=== PATIENT | female | born 1930 | race Caucasian/White ===

== ENCOUNTER 2018-10-27 18:30 | Inpatient (IN) | payer MEDICARE ==
--- NOTE | 2018-10-27 19:52 | ED PDOC ---
HPI: Trauma/Fall - HPI Time Seen by Provider: 10/27/18 18:42 Chief Complaint (Nursing): Trauma Chief Complaint (Provider): Trauma History Per: Patient, Family (son) History/Exam Limitations: no limitations Onset/Duration Of Symptoms: Intermittent Episodes (x1 week) Injury Occurred (Timing): Just Before Arrival Additional Complaint(s): 88 year old female with pmHx of thyroid disease, arrives to ED with son for an evaluation of generalized weakness for 1 week. As per son, he found the patient had fallen onto the living room floor around 20:00 last night and was unable to get up. It is unknown what time she had fell but she was placed onto her bed by her family. Prior to arrival, patient had called son and stated that she had fell again, thus, prompting ED visit. At present, she reports experiencing decreased appetite and diarrhea. She denies chest pain, shortness of breath, focal weakness, blurry vision, headache, or difficulty with speech. Of note, patient is placed on diuretic for chronic leg edema. PCP: Dr. Elliott Reis Past Medical History Reviewed: Historical Data, Nursing Documentation, Vital Signs Vital Signs: Last Vital Signs Temp 98.8 F 10/27/18 18:34 Pulse 92 H 10/27/18 18:34 Resp 18 10/27/18 18:32 BP 182/75 H 10/27/18 18:34 Pulse Ox 96 10/27/18 18:34 - Medical History PMH: Alzheimer's Disease, CHF, Dementia, HTN, Hypothyroidism Denies: Chronic Kidney Disease - Surgical History Surgical History: No Surg Hx - Family History Family History: States: No Known Family Hx - Social History Current smoker - smoking cessation education provided: No Alcohol: None Drugs: Denies - Home Medications Home Medications: Ambulatory Orders Medication Instructions Recorded RX: Anastrozole [Arimidex] 1 mg PO DAILY 09/27/16 RX: Doxazosin [Cardura] 2 mg PO DAILY 09/27/16 RX: Aspirin [Aspirin Chewable] 81 mg PO DAILY chew 09/28/16 RX: Donepezil [Aricept] 5 mg PO HS tab 09/28/16 RX: Furosemide [Lasix] 20 mg PO DAILY tab 09/28/16 RX: Levothyroxine [Synthroid] 100 mcg PO DAILY@0630 tab 09/28/16 - Allergies Allergies/Adverse Reactions: Allergies Allergy/AdvReac Type Severity Reaction Status Date / Time No Known Allergies Allergy Verified 09/27/16 12:29 Review of Systems ROS Statement: Except As Marked, All Systems Reviewed And Found Negative (and as per HPI) Constitutional: Positive for: Weakness Eyes: Negative for: Vision Change (blurry) Cardiovascular: Negative for: Chest Pain Respiratory: Negative for: Shortness of Breath Gastrointestinal: Positive for: Diarrhea, Rectal Pain, Other (decreased appetite) Neurological: Negative for: Weakness (focal), Change in Speech, Headache Physical Exam - Reviewed Nursing Documentation Reviewed: Yes Vital Signs Reviewed: Yes - Physical Exam Appears: Positive for: No Acute Distress (but tired appearing) Head Exam: Positive for: ATRAUMATIC, NORMOCEPHALIC Skin: Positive for: Warm, Dry Eye Exam: Positive for: EOMI, PERRL ENT: Positive for: Other (tacky mucous membranes) Neck: Positive for: Painless ROM, Supple Cardiovascular/Chest: Positive for: Regular Rate, Rhythm. Negative for: Murmur Respiratory: Positive for: Normal Breath Sounds. Negative for: Respiratory Distress Gastrointestinal/Abdominal: Positive for: Soft. Negative for: Tenderness Back: Positive for: Normal Inspection. Negative for: Muscle Spasm Extremity: Positive for: Pedal Edema (doughy bilaterally) Lymphatic: Negative for: Adenopathy Neurologic/Psych: Positive for: Alert, Oriented (x2). Negative for: Motor/S ensory Deficits - Laboratory Results Result Diagrams: 10/27/18 19:45 10/27/18 19:45 - ECG O2 Sat by Pulse Oximetry: 96 (RA) Pulse Ox Interpretation: Normal Medical Decision Making Medical Decision Making: Initial Impression: General weakness Differential diagnosis includes but not limited to: dehydration, anemia, UTI, viral syndrome, sepsis, electrolyte abnormality, coronary syndrome. Initial Plan: * Labs * CT head * EKG * Blood culture * Urine culture * Accucheck * Influenza AB Time: 1938 --CT head FINDINGS: BRAIN No acute intraparenchymal hemorrhage. No mass lesion. No CT evidence for acute territorial infarct. No midline shift or extra-axial collections. There is periventricular white matter ischemic changes. VENTRICLES: No hydrocephalus. ORBITS: The orbits are unremarkable. SINUSES AND MASTOIDS: The paranasal sinuses and mastoid air cells are clear. BONES: No fracture. SOFT TISSUES: Unremarkable. IMPRESSION: No acute intracranial abnormality. Periventricular white matter ischemic changes. Clinical correlation advised. Labs demonstrate leukocytosis CXR with RLL infiltrate UA with UTI. DAVID Reis PMD for hospitalization DW pt and family findings and plan of care. Scribe Attestation: Documented by Kenna Alonso, acting as a scribe for Nellie Dee MD. Provider Scribe Attestation: All medical record entries made by the Scribe were at my direction and personally dictated by me. I have reviewed the chart and agree that the record accurately reflects my personal performance of the history, physical exam, medical decision making, and the department course for this patient. I have also personally directed, reviewed, and agree with the discharge instructions and disposition. Disposition - Clinical Impression Clinical Impression: Pneumonia, UTI (urinary tract infection), Weakness Counseled Patient/Family Regarding: Studies Performed, Diagnosis - Disposition Disposition Time: 22:00 Condition: FAIR - Pt Status Changed To: Hospital Disposition Of: Inpatient - Admit Certification Admit to Inpatient:: After my assessment, the patient will require hospitalization for at least two midnights. This is because of the severity of symptoms shown, intensity of services needed, and/or the medical risk in this patient being treated as an outpatient. - POA Present On Arrival: Falls Or Trauma
[2018-10-27 20:02] LABS: VENOUS BLOOD GAS PCO2 39 mmHg (40-60); VENOUS BLOOD GAS PO2 57 mm/Hg (30-55); VENOUS BLOOD PH 7.45 (7.32-7.43)
[2018-10-27 20:08] LABS: BASO # 0.1 K/uL (0.0-0.2); BASO % 0.5 % (0.0-2.0); HEMOGLOBIN 13.6 g/dL (12.0-16.0); LYMPH # 0.7 K/uL (1.0-4.3); LYMPH % 4.8 % (20.0-40.0); MEAN CELL VOLUME 93.2 fl (81.0-99.0); MEAN CORPUSCULAR HEMOGLOBIN 30.8 pg (27.0-31.0); MEAN CORPUSCULAR HGB CONC 33.1 g/dL (33.0-37.0); MEAN PLATELET VOLUME 9.5 fl (7.2-11.7); MONO # 1.7 K/uL (0.0-0.8); MONO % 12.6 % (0.0-10.0); NEUT # 11.2 K/uL (1.8-7.0); NEUT % 82.1 % (50.0-75.0); NRBC % 0.3 % (0.0-0.0); PLATELET COUNT 164 K/uL (130-400); RBC 4.41 Mil/uL (3.80-5.20); RED CELL DISTRIBUTION WIDTH 14.4 % (11.5-14.5); WHITE BLOOD COUNT 13.6 K/uL (4.8-10.8)
[2018-10-27 20:13] LABS: ALB/GLOB RATIO 1.1 (1.0-2.1); ALBUMIN 3.8 g/dL (3.5-5.0); ALT/SGPT 48 U/L (9-52); AST/SGOT 59 U/L (14-36); BLOOD UREA NITROGEN 25 mg/dl (7-17); CALCIUM 9.1 mg/dL (8.4-10.2); GFR NON-AFRICAN AMERICAN 52
[2018-10-27 20:20] LABS: INR 1.2; PROTHROMBIN TIME 13.8 Seconds (9.8-13.1)
[2018-10-27 20:22] LABS: PARTIAL THROMBOPLASTIN TIME 26.1 Seconds (25.6-37.1)
[2018-10-27 20:24] LABS: B-TYPE NATRIURETIC PEPTIDE 965 pg/ml (0-900)
[2018-10-27] MEDS ORDERED: Azithromycin 500 MG in Sodium Chloride 0.9% 250 ML IVPB ONE (20:30)
[2018-10-27 20:31] LABS: LYMPHOCYTE 3 % (20-50); MONOCYTE 11 % (0-10); NEUTROPHIL 86 % (42-75); PLATELET ESTIMATE NORMAL (NORMAL); TOTAL CELLS COUNTED 100
[2018-10-27 20:32] LABS: ANISOCYTOSIS SLIGHT; OVALOCYTES SLIGHT; POIKILOCYTOSIS SLIGHT
[2018-10-27] MEDS ORDERED: cefTRIAXone (Rocephin) 1 gm Inj ONE (20:33)
[2018-10-27 21:39] LABS: SQUAMOUS EPITHIAL 2 /hpf (0-5); URINE BILIRUBIN NEGATIVE (NEGATIVE); URINE BLOOD MODERATE (NEGATIVE); URINE CLARITY CLOUDY (Clear); URINE COLOR AMBER (YELLOW); URINE GLUCOSE (UA) NEG (NEGATIVE); URINE LEUKOCYTE ESTERASE SMALL Leu/uL (Negative); URINE PROTEIN NEGATIVE (NEGATIVE); WBC CLUMPS FEW /hpf
[2018-10-27 21:45] LABS: URINE BACTERIA MANY (<OCC)
[2018-10-27] MEDS ORDERED: Azithromycin 500 MG IV IVPB ONE (23:27)
--- NOTE | 2018-10-28 08:49 | RAD ---
Date of service: 10/27/2018 HISTORY: Altered mental status COMPARISON: 09/27/2016. FINDINGS: LUNGS: The lungs are well inflated. There is patchy airspace disease in the right middle and lower lobes. PLEURA: No pleural effusions or pneumothorax. CARDIOVASCULAR: The heart is normal in size. There are aortic atherosclerotic calcifications present. OSSEOUS STRUCTURES: Within normal limits for the patient's age. VISUALIZED UPPER ABDOMEN: Normal. OTHER FINDINGS: None. IMPRESSION: Patchy airspace disease in the right middle and lower lobes could represent subsegmental atelectasis however superimposed pneumonia cannot be excluded. Follow-up is advised.
[2018-10-28] MEDS ORDERED: Azithromycin 500 MG in Sodium Chloride 0.9% 250 ML IVPB SCH (09:00)
[2018-10-28] MEDS: Levothyroxine 100 MCG TAB PO SCH (09:26)
--- NOTE | 2018-10-28 09:43 | CT ---
Date of service: 10/27/2018 PROCEDURE: CT HEAD WITHOUT CONTRAST. HISTORY: fall COMPARISON: None available. TECHNIQUE: Axial computed tomography images were obtained through the head/brain without intravenous contrast. Radiation dose: Total exam DLP = 1181.73 mGy-cm. This CT exam was performed using one or more of the following dose reduction techniques: Automated exposure control, adjustment of the mA and/or kV according to patient size, and/or use of iterative reconstruction technique. FINDINGS: HEMORRHAGE: No intracranial hemorrhage. BRAIN: There are moderate chronic microangiopathic changes. There is an old infarction in the left very frontal white matter and old lacunar infarction in the right basal ganglia. There is no mass, mass effect or abnormal extra-axial fluid collection. There is no territorial infarction. The midline sagittal structures are normal.There are coarse atherosclerotic calcifications in the cavernous carotid arteries. VENTRICLES: There is mild age-related global parenchymal volume loss and proportionate enlargement of the ventricles and cortical sulci. CALVARIUM: There is no calvarial fracture or extracranial soft tissue swelling. PARANASAL SINUSES: Predominantly clear. MASTOID AIR CELLS: Predominantly clear. OTHER FINDINGS: None. IMPRESSION: No acute intracranial abnormality. Moderate chronic microangiopathic changes and mild age-related global parenchymal volume loss. 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 A preliminary report was provided by [employer].
--- NOTE | 2018-10-28 16:39 | CARD ---
APPROVED REPORT Date of service: 10/27/2018 EKG Measurement Heart [id number] MT [id number] [id number] <Conclusion> Normal sinus rhythm Normal ECG
[2018-10-28] MEDS: Lactulose 10 gm/15 ml Syrup PO SCH (20:59)
--- NOTE | 2018-10-28 23:08 | CP.PCM.PCO ---
Physician Communication Note - Physician Communication Note Physician Communication Note: Blood cx: G+ cocci; Started vancomycin 1 gm IVPB Q12
[2018-10-29] MEDS: Lactulose 10 gm/15 ml Syrup PO SCH ×6 (01:35→20:28)
--- NOTE | 2018-10-29 05:13 | HP ---
HISTORY OF PRESENT ILLNESS: This is an 88-year-old female who is known to me with history of hypothyroidism, osteoarthritis, and bilateral venous insufficiency. The patient was found in the floor by her family. The patient was brought to emergency room and evaluated where she was found to have patchy airspace disease in the right middle and lower lobe, could present subsegmental atelectasis; however, superimposed pneumonia cannot be excluded. The patient was started on IV antibiotics and IV hydration and admitted for further management. The patient also had influenza type A and B done in the emergency room that were negative. REVIEW OF SYSTEMS: Other review of systems is negative. ALLERGIES: NO KNOWN ALLERGY. MEDICATIONS: Reviewed as per MAR and ordered. SOCIAL HISTORY: No history of smoking, EtOH or substance abuse. FAMILY HISTORY: Not contributory. PAST MEDICAL HISTORY: As above. PHYSICAL EXAMINATION: GENERAL: The patient is in bed, not in any cardiopulmonary distress. VITAL SIGNS: Blood pressure 123/66, temperature 98.1, respiratory rate 20 and pulse of 90. HEENT: Pupils equal, reactive to light. Normal-appearing mucosa of the conjunctivae, oropharynx and nasal membrane mucosa. NECK: Supple. No JVD. No carotid bruit. No lymph node. No thyromegaly. CHEST AND LUNGS: Bilateral symmetrical expansion. Good air exchange. Few basilar rales. CARDIOVASCULAR SYSTEM: PMI not localized. S1, S2. No additional sounds. ABDOMEN: Normoactive bowel sounds. No tenderness. No organomegaly. No masses. EXTREMITIES: There is bilateral edema. The patient moves all extremities equally. ASSESSMENT: 1. Right lower and middle lobe pneumonia. 2. Dehydration. 3. History of hypothyroidism. PLAN: Continue current IV antibiotics and resume the patient's home medications and physical therapy. Corby MD Chato
[2018-10-29] MEDS: Levothyroxine 100 MCG TAB PO SCH (05:38)
[2018-10-29 10:33] LABS: MEAN CELL VOLUME 95.5 fl (81.0-99.0); MEAN CORPUSCULAR HEMOGLOBIN 31.9 pg (27.0-31.0); MEAN CORPUSCULAR HGB CONC 33.4 g/dL (33.0-37.0); RBC 4.08 Mil/uL (3.80-5.20); RED CELL DISTRIBUTION WIDTH 14.7 % (11.5-14.5); WHITE BLOOD COUNT 6.7 K/uL (4.8-10.8)
[2018-10-29 10:45] LABS: ALBUMIN 3.4 g/dL (3.5-5.0); ALT/SGPT 76 U/L (9-52); AST/SGOT 89 U/L (14-36); BLOOD UREA NITROGEN 25 mg/dl (7-17); CALCIUM 8.7 mg/dL (8.4-10.2); GFR NON-AFRICAN AMERICAN > 60
[2018-10-29] MEDS: levoFLOXacin 500 mg in D5W 500 MG/100 ML BAG IVPB SCH (14:30)
[2018-10-29] MEDS ORDERED: Potassium Chloride 20 mEq ER Tab PO ONE (18:53)
--- NOTE | 2018-10-29 21:01 | CARD ---
APPROVED REPORT Date of service: 10/29/2018 EXAM: Two-dimensional and M-mode echocardiogram with Doppler and color Doppler. Other Information Quality : GoodRhythm : NSR INDICATION Infection: 2D DIMENSIONS IVSd1.52 (0.7-1.1cm)LVDd4.41 (3.9-5.9cm) LVOT Diameter2.11 (1.8-2.4cm)PWd1.45 (0.7-1.1cm) IVSs1.51 (0.8-1.2cm)LVDs3.30 (2.5-4.0cm) FS (%) 25.1 %PWs1.66 (0.8-1.2cm) M-Mode DIMENSIONS Left Atrium (MM)4.24 (2.5-4.0cm)IVSd1.03 (0.7-1.1cm) Aortic Root3.24 (2.2-3.7cm)LVDd5.53 (4.0-5.6cm) Aortic Cusp Exc.1.62 (1.5-2.0cm)PWd1.09 (0.7-1.1cm) IVSs1.47 cmFS (%) 31 % LVDs3.82 (2.0-3.8cm)PWs0.97 cm Aortic Valve AoV Peak Yjedmeak268.3cm/sAoV VTI28.6cmAO Peak GR.8mmHg LVOT Peak Bvpfhffm28.2cm/sLVOT VTI17.10cmAO Mean GR.5mmHg BRADFORD (VMAX)1.07qj2QYO (VTI)1.06cm2 Mitral Valve MV E Jwrwmxbf46.8cm/sMV DECEL [id number] A Eedbweqy94.4cm/s MV DBZ76qdM/A ratio0.6MVA (PHT)2.60cm2 TDI Lateral E' Peak V6.60cm/sMedial E' Peak V4.64cm/sE/Lateral E'7.8 E/Medial E'11.2 LEFT VENTRICLE The left ventricle is normal size. There is normal left ventricular wall thickness. The left ventricular systolic function is normal. The estimated ejection fraction is 55-60% No regional wall motion abnormalities noted.. Transmitral Doppler flow pattern is Grade I-abnormal relaxation pattern. No left ventricle thrombus noted on this study. There is no ventricular septal defect visualized. There is no left ventricular aneurysm. There is no mass noted in the left ventricle. RIGHT VENTRICLE The right ventricle is normal size. There is normal right ventricular wall thickness. The right ventricular systolic function is normal. ATRIA The left atrium is mildly dilated. The right atrium size is normal. The interatrial septum is intact with no evidence for an atrial septal defect. AORTIC VALVE The aortic valve is normal in structure. No aortic regurgitation is present. There is no aortic valvular stenosis. There is no aortic valvular vegetation. MITRAL VALVE The mitral valve is normal in structure. There is no evidence of mitral valve prolapse. There is no mitral valve stenosis. There is mild mitral valve regurgitation noted. TRICUSPID VALVE The tricuspid valve is normal in structure. There is no tricuspid valve regurgitation noted. There is no tricuspid valve prolapse or vegetation. There is no tricuspid valve stenosis. PULMONIC VALVE The pulmonary valve is normal in structure. There is no pulmonic valvular regurgitation. There is no pulmonic valvular stenosis. GREAT VESSELS The aortic root is normal in size. The ascending aorta is normal in size. The pulmonary artery is normal. The IVC is normal in size and collapses >50% with inspiration. PERICARDIAL EFFUSION There is no pericardial effusion. There is no pleural effusion. <Conclusion> Technically difficult study The estimated ejection fraction is 55-60% Transmitral Doppler flow pattern is Grade I-abnormal relaxation pattern. The left atrium is mildly dilated. There is mild mitral valve regurgitation noted. There is no tricuspid valve regurgitation noted. No vegetations found on this study. Correlate clinically.
[2018-10-30] MEDS: Lactulose 10 gm/15 ml Syrup PO SCH ×4 (01:02→13:04)
[2018-10-30] MEDS: Levothyroxine 100 MCG TAB PO SCH (05:39)
[2018-10-30 08:56] LABS: HEMOGLOBIN 13.6 g/dL (12.0-16.0); MEAN CELL VOLUME 97.1 fl (81.0-99.0); MEAN CORPUSCULAR HEMOGLOBIN 31.8 pg (27.0-31.0); MEAN CORPUSCULAR HGB CONC 32.7 g/dL (33.0-37.0); RBC 4.27 Mil/uL (3.80-5.20); RED CELL DISTRIBUTION WIDTH 14.6 % (11.5-14.5); WHITE BLOOD COUNT 6.2 K/uL (4.8-10.8)
[2018-10-30 09:10] LABS: BLOOD UREA NITROGEN 25 mg/dl (7-17); CALCIUM 9.1 mg/dL (8.4-10.2); GFR NON-AFRICAN AMERICAN > 60
[2018-10-30] MEDS: levoFLOXacin 500 mg in D5W 500 MG/100 ML BAG IVPB SCH (09:10)
--- NOTE | 2018-10-30 10:42 | PN ---
DATE: 10/29/2018 SUBJECTIVE: She was not in any cardiopulmonary distress at the time of this examination. PHYSICAL EXAMINATION: VITAL SIGNS: The patient's blood pressure was 158/70, temperature 96.8, respiratory rate 20 and pulse 69. HEENT: Pupils equal, reactive to light. Normal-appearing mucosa of the conjunctivae, oropharynx and nasal membrane mucosa. NECK: Supple. No JVD. No carotid bruit. No lymph node. No thyromegaly. CHEST AND LUNGS: Bilateral symmetrical expansion. Good air exchange. No rales, no rhonchi. CARDIOVASCULAR: PMI not localized. S1, S2. No additional sounds. ABDOMEN: Normoactive bowel sounds. No tenderness. No organomegaly. No masses. EXTREMITIES: No cyanosis, no clubbing, no edema. CENTRAL NERVOUS SYSTEM: Alert, awake, oriented x2 and moves all extremities equally. LABORATORY DATA: Blood culture grew coagulase-negative Staphylococcus and urine culture grew E. coli. ASSESSMENT: Pneumonia, urinary tract infection, history of hypothyroidism, osteoarthritis. PLAN: Continue current IV antibiotics, both vancomycin and Levaquin. Follow with infectious disease consult and follow their recommendations. Physical therapy evaluation for discharge to transitional care unit. Elliott Reis MD
--- NOTE | 2018-10-30 12:25 | CP.PCM.PCO ---
Physician Communication Note - Physician Communication Note Physician Communication Note: Pt has uti/bateremia, needs IV abx for [address] Reis will follow
[2018-10-30 15:43] VITALS: BP 139/73; TEMP 97.5
[2018-10-30 16:17] VITALS: PULSE 80; RESP 230; O2SAT 95
--- NOTE | 2018-10-31 22:28 | PQF ---
PROVIDER RESPONSE TEXT: Likely contamination REVIEWER QUERY TEXT: Clarification of Clinical Diagnostic Findings Please clarify if there is an associated diagnosis tor not to go along with the 1 blood culture growi ng Coagulase Neg Staphylococcus. Please clarify documentation or clinical relevance for the clinical / diagnostic findings or whether those are insignificant or unable to be further specified. The patient's Clinical Indicators include: Presented s/p Falls to the ER. Diagnoses include: Right lower and middle lobe pneumonia Blood CS x 1 Coagulase Neg Staph. CXR: Patchy airspace disease in the right middle and lower lobes could represent subsegmental atelect asis however superimposed pneumonia cannot be excluded Rx: IVAB Query created by: Any Orellana on 10/30/2018 12:48 PM Electronically signed by: Elliott Reis MD 10/31/2018 10:25 PM
--- NOTE | 2018-10-31 22:28 | PQF ---
PROVIDER RESPONSE TEXT: Chronic diastolic HF REVIEWER QUERY TEXT: Heart Failure Acuity and Type PMH of CHF is documented in the Medical Record by the ER MD. Patient is on Lasix po. Pro BNP 965. . Last ECHO in the EMR from 2015: EF 60-65% , transmitral Doppler flow pattern is Grade I- abnormal rel axation pattern.. Please document the type and acuity (includes probable or suspected) Such as: Type: -- Combined systolic and diastolic (heart failure with reduced ejection fraction and diastolic) dysfu nction -- Diastolic (HFpEF) -- Systolic (HFrEF) -- Left heart failure -- Right heart failure -- Right heart failure due to left heart failure -- High output failure -- End stage heart failure -- Other, please specify Acuity: -- Acute -- Chronic -- Acute on chronic -- Other, please specify Also please document the underlying cause of the CHF (includes probable or suspected) The patient's Clinical Indicators include: ER: History of CHF. Pro BNP 965 Medication: Lasix po Query created by: Any Orellana on 10/29/2018 8:53 AM Electronically signed by: Elliott Reis MD 10/31/2018 10:25 PM
--- NOTE | 2018-10-31 22:28 | PQF ---
PROVIDER RESPONSE TEXT: UTI REVIEWER QUERY TEXT: Clarification of Clinical Diagnostic Findings Please clarify documentation or clinical relevance for the clinical / diagnostic findings or whether those are insignificant or unable to be further specified. Please clarify if there is an associated diagnosis or not to go along with the Urine CS results. URINE CS: >100,000 CFU/ML E Coli. UA: + Nitrate. Rx: IVAB The patient's Clinical Indicators include: Presented to the ER s/p Falls. URINE CS: >100,000 CFU/ML E Coli. , UA: + Nitrate., Rx: IVAB Query created by: Any Orellana on 10/30/2018 12:43 PM Electronically signed by: Elliott Reis MD 10/31/2018 10:25 PM
--- NOTE | 2018-11-01 13:34 | DS ---
REASON FOR ADMISSION: This is an 88-year-old female with history of multiple medical problems, was admitted after a fall and found to have pneumonia as well as urinary tract infection. COURSE OF HOSPITALIZATION: The patient was admitted to medical floor and she was started on IV antibiotics. The patient had urine culture positive for gram-negative rods and blood culture positive for Staph coagulase-negative. The patient was started on both Rocephin as well as Levaquin. The patient's symptoms remarkably improved and she was started on physical therapy. The patient was discharged to transitional care unit at [facility]. FINAL DIAGNOSES: Pneumonia, urinary tract infection, Staphylococcus coagulase-negative bacteremia, hypothyroidism, hypertension, osteoarthritis. [facility] MD Chato
== END 2018-10-30 16:30 | DRG 194 ==
LOC: H.ER 18:30 → H.ERHOLD 20:50 → H.MEDSURG1 10-28 13:37
PROVIDERS: ADMIT Internal Medicine; ATTEND Internal Medicine
DX: J18.1 Lobar pneumonia, unspecified organism (principal); N39.0 Urinary tract infection, site not specified; I50.32 Chronic diastolic (congestive) heart failure; E86.0 Dehydration; E03.9 Hypothyroidism, unspecified; F02.80 Dementia in other diseases classified elsewhere, unspecified severity, without behavioral disturbance, psychotic disturbance, mood disturbance, and anxiety; G30.9 Alzheimer's disease, unspecified; I87.2 Venous insufficiency (chronic) (peripheral); M19.90 Unspecified osteoarthritis, unspecified site; I11.0 Hypertensive heart disease with heart failure; Z79.82 Long term (current) use of aspirin

== ENCOUNTER 2018-10-30 16:05 | Inpatient (IN) | payer OTHER, MEDICARE ==
[2018-10-30 16:48] VITALS: BMI 37.2
[2018-10-30] MEDS ORDERED: Patient's Own Med (Vancomycin 1 Gm [Vancomycin 1gm In Normal Saline Addvantage] 1 GM) IVPB SCH (21:00)
[2018-10-31] MEDS: Levothyroxine 100 MCG TAB PO SCH (06:32)
[2018-10-31 07:08] LABS: HEMOGLOBIN 13.1 g/dL (12.0-16.0); MEAN CELL VOLUME 94.2 fl (81.0-99.0); MEAN CORPUSCULAR HEMOGLOBIN 31.8 pg (27.0-31.0); MEAN CORPUSCULAR HGB CONC 33.8 g/dL (33.0-37.0); RBC 4.1 Mil/uL (3.80-5.20); RED CELL DISTRIBUTION WIDTH 14.2 % (11.5-14.5); WHITE BLOOD COUNT 5.5 K/uL (4.8-10.8)
[2018-10-31 07:14] LABS: ALB/GLOB RATIO 0.9 (1.0-2.1); ALBUMIN 3.1 g/dL (3.5-5.0); ALT/SGPT 70 U/L (9-52); AST/SGOT 51 U/L (14-36); BLOOD UREA NITROGEN 24 mg/dl (7-17); CALCIUM 9.1 mg/dL (8.4-10.2); GFR NON-AFRICAN AMERICAN > 60
[2018-10-31] MEDS ORDERED: Patient's Own Med (Levofloxacin 500 Mg In D5w [Levaquin 500mg] 500 MG) IVPB SCH (09:00)
[2018-10-31] MEDS ORDERED: levoFLOXacin 500 mg in D5W 500 MG/100 ML BAG IVPB SCH (09:00)
[2018-11-01] MEDS: Levothyroxine 100 MCG TAB PO SCH (06:24)
--- NOTE | 2018-11-01 06:47 | HP ---
HISTORY OF PRESENT ILLNESS: The patient is an 88-year-old female with history of multiple medical problems including hypothyroidism, hypertension, and osteoarthritis, was admitted to transitional care unit after an acute care admission for pneumonia. The patient was treated for pneumonia and urinary tract infection, and started on physical therapy, and transferred to transitional care unit for further management. The patient currently does not have any shortness of breath, chest pain, or cough. The patient is also afebrile. REVIEW OF SYSTEMS: Other review of system is negative. ALLERGIES: NO KNOWN ALLERGY. MEDICATIONS: Reviewed as per MAR and ordered. SOCIAL HISTORY: No history of smoking, EtOH, or substance abuse. FAMILY HISTORY: Noncontributory. PAST MEDICAL HISTORY: As above. PHYSICAL EXAMINATION: VITAL SIGNS: Blood pressure 163/78, temperature 97.6, respiratory rate 20, and pulse 69. HEENT: Pupils equal, reactive to light. Normal-appearing mucosa of the conjunctivae, oropharynx and nasal membrane mucosa. NECK: Supple. No JVD. No carotid bruit. No lymph node. No thyromegaly. CHEST AND LUNGS: Bilateral symmetrical expansion. Good air exchange. There are few basal rales. No rhonchi. CARDIOVASCULAR SYSTEM: PMI not localized. S1, S2. No additional sounds. ABDOMEN: Normoactive bowel sounds. No tenderness. No organomegaly. No masses. EXTREMITIES: No cyanosis, no clubbing. There is bilateral nonpitting edema due to chronic venous insufficiency. ACID BLOWER: Alert, awake, and oriented x2. No neurological deficit could be appreciated. ASSESSMENT: Community-acquired pneumonia, urinary tract infection, hypothyroidism, osteoarthritis, and dysfunctional gait status post fall. PLAN: Continue current antibiotics, monitor electrolytes and physical therapy and occupational therapy. Elliott Reis MD
[2018-11-01] MEDS: Lidocaine 5% Patch TD SCH ×2 (08:27→08:31)
[2018-11-01] MEDS ORDERED: levoFLOXacin 500 mg in D5W 500 MG/100 ML BAG IVPB SCH (17:00)
[2018-11-02] MEDS: Levothyroxine 100 MCG TAB PO SCH (06:22)
[2018-11-02] MEDS: Lidocaine 5% Patch TD SCH (08:22)
[2018-11-02] MEDS: levoFLOXacin 500 mg in D5W 500 MG/100 ML BAG IVPB SCH (21:16)
--- NOTE | 2018-11-02 22:38 | PN ---
DATE: 11/02/2018 SUBJECTIVE: The patient is seen today, 11/02/2018. She is not in any cardiopulmonary distress. Cooperative with physical therapy and occupational therapy. PHYSICAL EXAMINATION: VITAL SIGNS: Blood pressure 152/77, temperature 98, respiratory rate 20 and pulse 67. HEENT: Pupils equal, reactive to light. Normal-appearing mucosa of the conjunctivae, oropharynx and nasal membrane mucosa. NECK: Supple. No JVD. No carotid bruit. No lymph node. No thyromegaly. CHEST AND LUNGS: Bilateral symmetrical expansion. Good air exchange. No rales, no rhonchi. CARDIOVASCULAR: PMI not localized. S1, S2. No additional sounds. ABDOMEN: Normoactive bowel sounds. No tenderness. No organomegaly. No masses. EXTREMITIES: No cyanosis, no clubbing, no edema. CENTRAL NERVOUS SYSTEM: Alert, awake, oriented x2. No neurological deficit could be appreciated. ASSESSMENT: 1. Pneumonia. 2. Hypertension. 3. Osteoarthritis. PLAN: Continue current medications and antibiotics and continue physical therapy and occupational therapy. Elliott Reis MD
[2018-11-03] MEDS: Levothyroxine 100 MCG TAB PO SCH (06:32)
[2018-11-03] MEDS: Lidocaine 5% Patch TD SCH (08:24)
[2018-11-03] MEDS: levoFLOXacin 500 mg in D5W 500 MG/100 ML BAG IVPB SCH (20:25)
[2018-11-04] MEDS: Levothyroxine 100 MCG TAB PO SCH (06:08)
[2018-11-04] MEDS: Lidocaine 5% Patch TD SCH (08:16)
[2018-11-04 17:37] LABS: SQUAMOUS EPITHIAL < 1 /hpf (0-5); URINE BILIRUBIN NEGATIVE (NEGATIVE); URINE BLOOD NEGATIVE (NEGATIVE); URINE CLARITY SLIGHTY-CLOUDY (Clear); URINE COLOR YELLOW (YELLOW); URINE GLUCOSE (UA) NEG (NEGATIVE); URINE LEUKOCYTE ESTERASE NEG Leu/uL (Negative); URINE PROTEIN NEGATIVE (NEGATIVE); URINE UROBILINOGEN 0.2-1.0 mg/dL (0.2-1.0)
[2018-11-04] MEDS: levoFLOXacin 500 mg in D5W 500 MG/100 ML BAG IVPB SCH (20:35)
--- NOTE | 2018-11-04 22:29 | PN ---
DATE: 11/09/2018 SUBJECTIVE: The patient is seen today, 11/04/2018. She is not in any cardiopulmonary distress. PHYSICAL EXAMINATION: VITAL SIGNS: Blood pressure 120/68, temperature 98.4, respiratory rate 20, and pulse 70. HEENT: Pupils equal, reactive to light. Normal-appearing mucosa of the conjunctivae, oropharynx and nasal membrane mucosa. NECK: Supple. No JVD. No carotid bruit. No lymph node. No thyromegaly. CHEST AND LUNGS: Bilateral symmetrical expansion. Good air exchange. No rales, no rhonchi. CARDIOVASCULAR SYSTEM: PMI not localized. S1, S2. No additional sounds. ABDOMEN: Normoactive bowel sounds. No tenderness. No organomegaly. No masses. EXTREMITIES: No cyanosis, no clubbing, no edema. CENTRAL NERVOUS SYSTEM: Alert, awake, oriented x2. No neurological deficit could be appreciated. ASSESSMENT: Urinary tract infection, pneumonia, hypertension, hypercholesterolemia, bilateral lower extremity venous insufficiency. The patient is status post bilateral mastectomy for cancer of breast. PLAN: Continue current antibiotics and continue physical therapy and occupational therapy. DVT prophylaxis. Elliott Reis MD
[2018-11-05] MEDS: Levothyroxine 100 MCG TAB PO SCH (05:36)
[2018-11-05 06:32] LABS: HEMOGLOBIN 12.4 g/dL (12.0-16.0); MEAN CELL VOLUME 95.7 fl (81.0-99.0); MEAN CORPUSCULAR HEMOGLOBIN 31.9 pg (27.0-31.0); MEAN CORPUSCULAR HGB CONC 33.3 g/dL (33.0-37.0); RBC 3.88 Mil/uL (3.80-5.20); RED CELL DISTRIBUTION WIDTH 14.5 % (11.5-14.5); WHITE BLOOD COUNT 7.3 K/uL (4.8-10.8)
[2018-11-05 06:46] LABS: BLOOD UREA NITROGEN 20 mg/dl (7-17); CALCIUM 8.8 mg/dL (8.4-10.2); GFR NON-AFRICAN AMERICAN 59
[2018-11-05] MEDS: Lidocaine 5% Patch TD SCH (08:23)
--- NOTE | 2018-11-06 00:20 | PN ---
DATE: 11/05/2018 SUBJECTIVE: The patient is seen today, 11/05/2018. PHYSICAL EXAMINATION: GENERAL: She is not in any cardiopulmonary distress. VITAL SIGNS: Blood pressure 152/76, temperature 98.2, respiratory rate 20, and pulse 65. HEENT: Pupils equal and reactive to light. Normal-appearing mucosa of the conjunctivae, oropharynx, and nasal membrane mucosa. NECK: Supple. No JVD. No carotid bruits. No lymph nodes. No thyromegaly. CHEST AND LUNGS: Bilateral symmetrical expansion, good air exchange. No rales. No rhonchi. CARDIOVASCULAR SYSTEM: PMI not localized. S1 and S2. No additional sounds. ABDOMEN: Normoactive bowel sounds. No tenderness. No organomegaly. No masses. EXTREMITIES: No cyanosis, no clubbing, no edema. [employer]: Alert, awake, and oriented x1 and moves all extremities equally. ASSESSMENT: 1. Pneumonia. 2. Urinary tract infection. 3. Bacteremia. PLAN: We will do a repeat chest x-ray and check the echocardiogram report. The patient is on antibiotics now for 9 days. Continue physical therapy and occupational therapy. Elliott Reis MD
[2018-11-06] MEDS: Levothyroxine 100 MCG TAB PO SCH (06:24)
[2018-11-06] MEDS: Lidocaine 5% Patch TD SCH (08:42)
--- NOTE | 2018-11-06 09:50 | RAD ---
Date of service: 11/06/2018 HISTORY: pneumonia COMPARISON: 10/27/2018 TECHNIQUE: Chest PA and lateral FINDINGS: LUNGS: The vague opacity in the medial right lung base is again perceived this is also similar and/or slightly increased in conspicuity compared to an even earlier study 03/01/2012. Some right pleural parenchymal pathology chronic here is 1 consideration. Conceivably a small pneumonia here cannot be excluded-however no definite air bronchograms here seen. Its clinical significance, if any is unclear. Conceivably some concomitant cardiophrenic fat pad can also see contribute to this appearance PLEURA: No significant pleural effusion identified. No pneumothorax apparent. CARDIOVASCULAR: There is presence of aortic atherosclerotic calcification on x-ray. Probable minimal cardiomegaly. No significant appearing pulmonary venous congestion. OSSEOUS STRUCTURES: Thoracic spondylosis noted. Bilateral shoulder arthrosis. VISUALIZED UPPER ABDOMEN: Normal. OTHER FINDINGS: None. IMPRESSION: No significant interval change perceived. The findings regarding the medial right lung base are fairly similar with earlier studies as detailed above. Some considerations are mentioned above. Clinical correlation is essential. No dense consolidation no definitive air bronchograms here seen. No worsening infiltrate or increasing infiltrate suggested.
[2018-11-06 16:22] VITALS: RESP 20
--- NOTE | 2018-11-06 19:15 | CT ---
Date of service: 11/06/2018 PROCEDURE: CT Chest without contrast HISTORY: PNEUMONIA COMPARISON: None available. TECHNIQUE: Contiguous axial images were obtained through the chest without intravenous contrast enhancement. Sagittal and coronal reconstructions were performed. Radiation dose: Total exam DLP = 399.07 mGy-cm. This CT exam was performed using one or more of the following dose reduction techniques: Automated exposure control, adjustment of the mA and/or kV according to patient size, and/or use of iterative reconstruction technique. FINDINGS: LUNGS: There is 0.7 centimeters spiculated nodule at the right lung upper lobe image 38 series 3. There is airspace consolidation at the right lung base may represent atelectasis. The possibility of pneumonia is less likely. Otherwise there is no evidence of infiltrate or consolidation in the lungs. Small pleural base nodule or pleural thickening noted at the left lower chest. MEDIASTINUM: Unremarkable thoracic aorta. No aneurysm. The heart is enlarged. Main pulmonary artery is mildly to moderately enlarged suggestive of pulmonary hypertension. No lymphadenopathy. Foci of atherosclerotic calcification noted in the thoracic aorta. No evidence of pericardial effusion. The thyroid gland is normal in size. The upper airway is patent. Mild diffuse esophageal mucosal thickening noted. PLEURA: No pleural fluid. No pneumothorax. BONES: No fracture. No destructive lesion. UPPER ABDOMEN: There are gallstones seen. OTHER FINDINGS: None. IMPRESSION: Small opacity at the right lung base may represent atelectasis. The possibility of pneumonia is less likely. 0.7 centimeters spiculated nodule at the right lung upper lobe. The possibility of neoplasm should be excluded. 3 months follow-up reassessment is recommended. Additional findings as discussed above.
--- NOTE | 2018-11-06 22:01 | PN ---
DATE: 11/06/2018 SUBJECTIVE: The patient is seen today on 11/06/2018. She has repeated chest x-ray with no change in the infiltration. PHYSICAL EXAMINATION: VITAL SIGNS: Blood pressure 131/74, temperature 97.4, respiratory rate 19, and pulse 72. HEENT: Pupils equal and reactive to light. Normal-appearing mucosa of the conjunctivae, oropharynx, and nasal membrane mucosa. NECK: Supple. No JVD, carotid bruit. No lymph node. No thyromegaly. CHEST AND LUNGS: Bilateral symmetrical expansion. Good air exchange. No rales. No rhonchi. CARDIOVASCULAR: PMI not localized. S1 and S2. No additional sounds. ABDOMEN: Normoactive bowel sounds. No tenderness. No organomegaly. No masses. EXTREMITIES: No cyanosis, no clubbing, no edema. CENTRAL NERVOUS SYSTEM: Alert, awake, oriented x2. No neurological deficit could be appreciated. ASSESSMENT: Bilateral pneumonia, status post bacteremia, hypertension, and hypothyroidism. PLAN: We will repeat chest CAT scan. The patient is off antibiotics. She is afebrile right now. We will continue physical therapy and occupational therapy. Discussed with the patient's son. Elliott Reis MD
[2018-11-07] MEDS: Levothyroxine 100 MCG TAB PO SCH (05:47)
[2018-11-07] MEDS: Lidocaine 5% Patch TD SCH (08:27)
[2018-11-08] MEDS: Levothyroxine 100 MCG TAB PO SCH (06:49)
[2018-11-08] MEDS: Lidocaine 5% Patch TD SCH (09:42)
[2018-11-09] MEDS: Levothyroxine 100 MCG TAB PO SCH (06:34)
[2018-11-09] MEDS: Lidocaine 5% Patch TD SCH (08:19)
--- NOTE | 2018-11-09 19:09 | PN ---
DATE: 11/08/2018 SUBJECTIVE: The patient was seen on 11/08/2018. She is not in any cardiopulmonary distress. CAT scan of the chest was reviewed that showed small opacity at the right lung base may represent atelectasis. The possibility of pneumonia is less likely and the patient has 0.7 cm spiculated nodule at the right lung upper lobe. The possibility of neoplasm should be excluded. Three months' follow up, reassessment is recommended. PHYSICAL EXAMINATION: VITAL SIGNS: Blood pressure 122/58, temperature 98.5, respiratory rate 20, and pulse 70. HEENT: Pupils equal and reactive to light. Normal-appearing mucosa of the conjunctivae, oropharynx, and nasal membrane mucosa. NECK: Supple. No JVD, no carotid bruit. No lymph node. No thyromegaly. CHEST AND LUNGS: Bilateral symmetrical expansion. Good air exchange. No rales. No rhonchi. CARDIOVASCULAR: PMI not localized. S1 and S2. No additional sounds. ABDOMEN: Normoactive bowel sounds. No tenderness. No organomegaly. No masses. EXTREMITIES: No cyanosis, no clubbing, no edema. FIELD AUDITOR: Alert, awake, oriented x1 and the patient moves all extremities equally. ASSESSMENT: 1. Resolved pneumonia. 2. Pulmonary nodule that we will follow up. 3. Hypertension. 4. Hypothyroidism. PLAN: Continue physical therapy and occupational therapy. As per physical therapy assessment, if the patient will need more physical therapy we will recommended subacute rehabilitation to the family. Elliott Reis MD
[2018-11-10] MEDS: Levothyroxine 100 MCG TAB PO SCH (06:09)
[2018-11-10] MEDS: Lidocaine 5% Patch TD SCH (09:13)
[2018-11-11] MEDS: Levothyroxine 100 MCG TAB PO SCH (05:48)
[2018-11-11] MEDS: Lidocaine 5% Patch TD SCH (08:37)
--- NOTE | 2018-11-11 23:12 | PN ---
DATE: 11/11/2018 SUBJECTIVE: The patient is not in any cardiopulmonary distress. PHYSICAL EXAMINATION: VITAL SIGNS: The patient's blood pressure was 125/73, temperature 97.5, respiratory rate 20, and pulse 68. HEENT: Pupils equal, reactive to light. Normal-appearing mucosa of the conjunctivae, oropharynx and nasal membrane mucosa. NECK: Supple. No JVD. No carotid bruit. No lymph node. No thyromegaly. CHEST AND LUNGS: Bilateral symmetrical expansion. Good air exchange. No rales, no rhonchi. CARDIOVASCULAR: PMI not localized. S1, S2. No additional sounds. ABDOMEN: Normoactive bowel sounds. No tenderness. No organomegaly. No masses. EXTREMITIES: No cyanosis, no clubbing, no edema. KENNEL STAFF MEMBER: Alert, awake, oriented x1 and moves all extremities equally. ASSESSMENT: Progressive dementia, hypertension, osteoarthritis, status post pneumonia. PLAN: Continue current physical therapy and occupational therapy. Plan for discharge to subacute rehabilitation and continue current medications. Elliott Reis MD
[2018-11-12] MEDS: Levothyroxine 100 MCG TAB PO SCH (06:19)
[2018-11-12] MEDS: Lidocaine 5% Patch TD SCH (08:54)
[2018-11-13] MEDS: Levothyroxine 100 MCG TAB PO SCH (06:11)
[2018-11-13] MEDS: Lidocaine 5% Patch TD SCH (08:39)
[2018-11-13 19:41] VITALS: O2SAT 95
--- NOTE | 2018-11-14 00:40 | PN ---
DATE: 11/13/2018 SUBJECTIVE: The patient is seen today, 11/13/2018. She did not move her bowel for three days. PHYSICAL EXAMINATION: VITAL SIGNS: Blood pressure 136/77, temperature 98.2, respiratory rate 20, and pulse 71. HEENT: Pupils equal and reactive to light. Normal-appearing mucosa of the conjunctivae, oropharynx and nasal membrane mucosa. NECK: Supple. No JVD. No carotid bruits. No lymph node. No thyromegaly. CHEST AND LUNGS: Bilateral symmetrical expansion. Good air exchange. No rales, no rhonchi. CARDIOVASCULAR SYSTEM: PMI not localized. S1, S2. No additional sounds. ABDOMEN: Normoactive bowel sounds. No tenderness. No organomegaly. No masses. EXTREMITIES: No cyanosis, no clubbing, no edema. COMB FIXER: Alert, awake, and oriented x2. No neurological deficit could be appreciated. ASSESSMENT: 1. Status post pneumonia. 2. Hypertension. 3. Osteoarthritis. 4. Advanced dementia. PLAN: Continue current medications and we will give the patient lactulose every 4 hours until bowel movement and follow up with the subacute rehabilitation discharge. Elliott Reis MD
[2018-11-14] MEDS ORDERED: Lactulose 10 gm/15 ml Syrup PO PRN (01:45)
[2018-11-14] MEDS: Levothyroxine 100 MCG TAB PO SCH (06:35)
[2018-11-14 08:11] VITALS: BP 118/69; PULSE 62; TEMP 97.7
[2018-11-14] MEDS: Lidocaine 5% Patch TD SCH (08:17)
--- NOTE | 2018-11-15 03:50 | DS ---
REASON FOR ADMISSION: This is an 88-year-old female with history of multiple medical problems, who was admitted to transitional care unit for deconditioning and completion of IV antibiotic therapy. COURSE OF HOSPITALIZATION: The patient was admitted to transitional care unit at [facility]. The patient was started on home medications as well as IV antibiotics that the patient completed. The patient's repeated CAT scan did not show any further infiltration or pneumonia, but there was pulmonary nodule that we will need to follow up. The patient was also continued on physical therapy and occupational therapy during this admission. The patient was discharged in a stable condition to [facility]. FINAL DIAGNOSES: 1. Hypertension. 2. Dementia. 3. Osteoarthritis. 4. Bilateral venous insufficiency. 5. Status post pneumonia. [facility] MD [place]
== END 2018-11-14 16:45 | DRG 194 ==
LOC: H.TCU 16:49
PROVIDERS: ADMIT Internal Medicine; ATTEND Internal Medicine
PROC: 3E03329 Introduction of Other Anti-infective into Peripheral Vein, Percutaneous Approach (ICD-10-PCS; principal; 2018-10-30)
PROC: F07Z9FZ Gait Training/Functional Ambulation Treatment using Assistive, Adaptive, Supportive or Protective Equipment (ICD-10-PCS; 2018-10-30)
PROC: F08Z4FZ Home Management Treatment using Assistive, Adaptive, Supportive or Protective Equipment (ICD-10-PCS; 2018-10-30)
PROC: F07M6FZ Therapeutic Exercise Treatment of Musculoskeletal System - Whole Body using Assistive, Adaptive, Supportive or Protective Equipment (ICD-10-PCS; 2018-10-30)
DX: J18.9 Pneumonia, unspecified organism (principal); N39.0 Urinary tract infection, site not specified; F03.90 Unspecified dementia, unspecified severity, without behavioral disturbance, psychotic disturbance, mood disturbance, and anxiety; R26.89 Other abnormalities of gait and mobility; I87.2 Venous insufficiency (chronic) (peripheral); I10 Essential (primary) hypertension; E03.9 Hypothyroidism, unspecified; E78.00 Pure hypercholesterolemia, unspecified; M19.90 Unspecified osteoarthritis, unspecified site; R91.1 Solitary pulmonary nodule; Z91.81 History of falling; Z87.440 Personal history of urinary (tract) infections; Z85.3 Personal history of malignant neoplasm of breast; Z90.13 Acquired absence of bilateral breasts and nipples